=== PATIENT | female | born 1980 | race Caucasian/White ===

== ENCOUNTER 2022-02-22 09:45 | Inpatient (IN) | payer BC ==
[~2022-02-22] VITALS: Ht 160 cm; Wt 87.3 kg
[2022-02-22] MEDS ORDERED: [UNRECOGNIZED DRUG - OTHER] (10:29)
[2022-02-22] MEDS ORDERED: LEVOTHYROXINE50 MCG PO (10:29)
[2022-02-22] MEDS ORDERED: VITAMIN D325 MCG (10:30)
[2022-02-22] MEDS ORDERED: VYVANSE30 MG (10:30)
[2022-02-22] MEDS ORDERED: ONDANSETRON HCL INJ 2MG/ML 2ML 2 MG/ML VIAL IV STA ×2 (10:51→13:56)
[2022-02-22] MEDS ORDERED: KETOROLAC TROMETHAMINE 30 MG/ML VIAL IV STA (10:51)
[2022-02-22] MEDS ORDERED: SODIUM CHLORIDE 0.9% 1000ML 1,000 ML IV SCH (11:00)
[2022-02-22] MEDS ORDERED: ONDANSETRON HCL INJ 2MG/ML 2ML 2 MG/ML VIAL ONE ×2 (11:03→14:05)
[2022-02-22] MEDS ORDERED: SODIUM CHLORIDE 0.9% 1000ML 1,000 ML ONE ×2 (11:04→15:18)
[2022-02-22] MEDS ORDERED: KETOROLAC TROMETHAMINE 30 MG/ML VIAL ONE (11:04)
[2022-02-22] MEDS ORDERED: IOPAMIDOL 370 MG/ML 100 ML INFUS..BTL INJ ONE (11:24)
[2022-02-22] MEDS ORDERED: MIDAZOLAM HCL 2 MG/2 ML VIAL ONE (12:09)
[2022-02-22] MEDS ORDERED: FENTANYL CITRATE/PF 100MCG/2 ML INJ ONE (12:09)
[2022-02-22] MEDS ORDERED: FAMOTIDINE 20 MG/2 ML VIAL IV STA (12:58)
[2022-02-22] MEDS ORDERED: DONNATAL/LIDOCAINE/MAALOX 30 ML SUSP PO ONE (13:00)
[2022-02-22] MEDS ORDERED: MAGNESIUM/ALUMINUM/SIMETHICONE 30 ML UDC ONE (13:16)
[2022-02-22] MEDS ORDERED: BELLADONNA ALK/PHENOBARBITAL 5 ML UDC ONE (13:16)
[2022-02-22] MEDS ORDERED: LIDOCAINE VISC 2% SOLN 15 ML UDC ONE (13:17)
[2022-02-22] MEDS ORDERED: Morphine 4mg INJECTION 4 MG/ML INJ IV ONE (14:00)
[2022-02-22] MEDS ORDERED: Morphine 4mg INJECTION 4 MG/ML INJ ONE (14:06)
[2022-02-22] MEDS ORDERED: CEFTRIAXONE 1 GM VIAL ONE (14:11)
[2022-02-22] MEDS ORDERED: HYDROMORPHONE 1MG/1ML INJ IV PRN (15:00)
[2022-02-22] MEDS ORDERED: PROMETHAZINE HCL (IM) 25 MG/ML VIAL IM PRN (15:00)
[2022-02-22] MEDS: SODIUM CHLORIDE 0.9% 1000ML 1,000 ML IV SCH ×2 (15:01→23:25)
[2022-02-22 16:41] VITALS: BP 102/56
[2022-02-22 18:13] VITALS: BP 108/95
[2022-02-22 20:29] VITALS: BP 102/51
[2022-02-22 21:00] VITALS: BP 102/51
[2022-02-22] MEDS: ONDANSETRON HCL INJ 2MG/ML 2ML 2 MG/ML VIAL IV PRN (21:51)
[2022-02-23] VITALS (10 sets, daily range): BP systolic 91–149; BP diastolic 42–74
[2022-02-23] MEDS: HYDROMORPHONE 1MG/1ML INJ IV PRN ×4 (01:47→23:34)
[2022-02-23] MEDS: ONDANSETRON HCL INJ 2MG/ML 2ML 2 MG/ML VIAL IV PRN ×2 (01:48→23:34)
[2022-02-23] MEDS: SODIUM CHLORIDE 0.9% 1000ML 1,000 ML IV SCH ×3 (05:20→23:00)
[2022-02-23 07:02] LABS: BASOPHILS # (AUTO) 0.1 (0.0-0.1); EOSINOPHILS # (AUTO) 0.5 (0.0-0.4); EOSINOPHILS % 6.9 % (0.0-6.0); HEMOGLOBIN 10.4 g/dL (12.0-16.0); LYMPHOCYTES # (AUTO) 2.5 (1.0-3.2); LYMPHOCYTES % 37.5 % (18.0-39.1); MEAN CORPUSCULAR HEMOGLOBIN 30.9 pg (28-32); MEAN CORPUSCULAR HGB CONC 31.5 g/dL (31-35); MEAN CORPUSCULAR VOLUME 97.9 fL (81-99); MONOCYTES # (AUTO) 0.4 (0.2-0.8); MONOCYTES % 5.8 % (4.4-11.3); NEUTROPHILS # (AUTO) 3.2 (2.1-6.9); NEUTROPHILS % 48.7 % (38.7-80.0); PLATELET COUNT 262 x10e3/uL (140-360); RED BLOOD COUNT 3.37 x10e6/uL (3.6-5.1); RED CELL DISTRIBUTION WIDTH 13.2 % (11.7-14.4)
[2022-02-23 07:23] LABS: ANION GAP 9.9 mmol/L (8-16); CALCIUM 8.1 mg/dL (8.4-10.2); CREATININE, SERUM 0.68 mg/dL (0.57-1.11); POTASSIUM 3.9 mmol/L (3.5-5.1)
[2022-02-23] MEDS ORDERED: PROPOFOL IV EMULSION 10 MG/ML 20 ML VIAL ONE (12:18)
[2022-02-23] MEDS ORDERED: LIDOCAINE HCL 2% LOCAL INJ 5 ML SDV VIAL INJ ONE (12:18)
[2022-02-23 13:17] LABS: % IRON SATURATION 21 % (15-50); IRON 85 ug/dL (50-170); TOTAL IRON BINDING CAPACITY 398 ug/dL (261-478); TRANSFERRIN 284 mg/dL (180-382)
[2022-02-23 13:26] LABS: ALBUMIN 3.1 g/dL (3.5-5.0); BILIRUBIN,DIRECT 0.2 mg/dL (0.0-0.5)
[2022-02-23] MEDS ORDERED: METOCLOPRAMIDE HCL 10 MG/2ML VIAL IV ONE (13:35)
[2022-02-23] MEDS: METOCLOPRAMIDE HCL 10 MG/2ML VIAL IV SCH ×2 (17:37→20:57)
[2022-02-24] VITALS (7 sets, daily range): BP systolic 110–134; BP diastolic 60–78
[2022-02-24] MEDS: HYDROMORPHONE 1MG/1ML INJ IV PRN ×4 (05:00→20:33)
[2022-02-24] MEDS: ONDANSETRON HCL INJ 2MG/ML 2ML 2 MG/ML VIAL IV PRN (05:00)
[2022-02-24] MEDS: METOCLOPRAMIDE HCL 10 MG/2ML VIAL IV SCH ×4 (09:13→20:26)
[2022-02-24] MEDS: BACITRACIN ZINC 15 GM OINT TOP SCH (09:14)
[2022-02-24] MEDS: SODIUM CHLORIDE 0.9% 1000ML 1,000 ML IV SCH ×2 (09:15→15:09)
[2022-02-25] MEDS: HYDROMORPHONE 1MG/1ML INJ IV PRN ×3 (00:11→09:28)
[2022-02-25] MEDS ORDERED: CHLORDIAZEPOXIDE/CLIDINIUM 1 CAP PO SCH (00:30)
[2022-02-25] MEDS: SODIUM CHLORIDE 0.9% 1000ML 1,000 ML IV SCH (00:48)
[2022-02-25 01:22] VITALS: BP 141/66
[2022-02-25 05:53] LABS: BASOPHILS # (AUTO) 0.1 (0.0-0.1); BASOPHILS % 0.8 % (0.0-1.0); EOSINOPHILS # (AUTO) 0.5 (0.0-0.4); EOSINOPHILS % 5.5 % (0.0-6.0); HEMATOCRIT 34.5 % (34.2-44.1); HEMOGLOBIN 11.2 g/dL (12.0-16.0); LYMPHOCYTES # (AUTO) 1.6 (1.0-3.2); MEAN CORPUSCULAR HEMOGLOBIN 30.9 pg (28-32); MEAN CORPUSCULAR HGB CONC 32.5 g/dL (31-35); MONOCYTES # (AUTO) 0.7 (0.2-0.8); MONOCYTES % 7.6 % (4.4-11.3); NEUTROPHILS # (AUTO) 6.4 (2.1-6.9); NEUTROPHILS % 68.8 % (38.7-80.0); PLATELET COUNT 301 x10e3/uL (140-360); RED BLOOD COUNT 3.63 x10e6/uL (3.6-5.1); RED CELL DISTRIBUTION WIDTH 12.3 % (11.7-14.4)
[2022-02-25 06:04] VITALS: BP 129/66
[2022-02-25 06:17] LABS: ALBUMIN 3.3 g/dL (3.5-5.0); ALBUMIN/GLOBULIN RATIO 1.1 (0.8-2.0); ANION GAP 15.8 mmol/L (8-16); CALCIUM 8.5 mg/dL (8.4-10.2); CREATININE, SERUM 0.66 mg/dL (0.57-1.11); POTASSIUM 3.8 mmol/L (3.5-5.1)
[2022-02-25] MEDS: CHLORDIAZEPOXIDE/CLIDINIUM 1 CAP PO SCH ×2 (07:30→11:30)
[2022-02-25] MEDS: METOCLOPRAMIDE HCL 10 MG/2ML VIAL IV SCH ×2 (07:30→11:30)
[2022-02-25 08:00] VITALS: BP 129/87
[2022-02-25 09:00] VITALS: BP 129/87
[2022-02-25] MEDS: BACITRACIN ZINC 15 GM OINT TOP SCH (09:00)
[2022-02-25 12:00] VITALS: BP 128/87
[2022-02-25] MEDS ORDERED: CIPRO500 MG PO (14:10)
[2022-02-25] MEDS ORDERED: PANTOPRAZOLE SO40 MG PO (14:11)
[2022-02-25] MEDS ORDERED: ULTRACET TABLE1 EACH PO (14:12)
== END 2022-02-25 14:50 | disposition home or self-care (01) | DRG 391 ==
LOC: FSED 10:08 → ERHOLD 14:53 → EDBD 14:53 → MED/SURG2 16:39 → OBSVTOIN 02-23 11:03
PROC: 8E0ZXY6 Isolation (ICD-10-PCS; 2022-02-23)
PROC: 0DB78ZX Excision of Stomach, Pylorus, Via Natural or Artificial Opening Endoscopic, Diagnostic (ICD-10-PCS; principal; 2022-02-23 12:16)
DX: K29.70 Gastritis, unspecified, without bleeding (principal); U07.1 COVID-19; N39.0 Urinary tract infection, site not specified; K20.90 Esophagitis, unspecified without bleeding; F90.9 Attention-deficit hyperactivity disorder, unspecified type; E06.3 Autoimmune thyroiditis; B96.1 Klebsiella pneumoniae [K. pneumoniae] as the cause of diseases classified elsewhere; K76.0 Fatty (change of) liver, not elsewhere classified; E03.9 Hypothyroidism, unspecified
CPT/HCPCS: 36415; 43239; 74177; 80048; 80053; 80076; 81003; 81025; 82607; 82746; 83540; 84466; 84702; 85025; 85045; 85651; 86140; 87086; 87186; 88304; 88305; 88312; 88342; 96374; 96375; 99251; 99284; G0378; J0696; J1170; J1885; J2001; J2250; J2270; J2405; J2765; J3010; J7030; Q9967